=== PATIENT | female | born 1970 | race Caucasian/White ===

== ENCOUNTER → 2017-09-06 | Outpatient (CLI) | payer OTHER ==
--- NOTE | 2017-09-06 13:18 | DIAGNOSTIC IMAGING REPORT ---
LUMBAR SPINE WITHOUT CLINICAL HISTORY: 47 years-old Female presenting with LUMBAR RADICULOPATHY. TECHNIQUE: Multidetector CT of the lumbar spine was performed without the use of intravenous contrast. IV contrast: None. A dose lowering technique was used consistent with the principles of ALARA (as low as reasonably achievable). COMPARISON: None. CT DOSE (mGy.cm): The estimated cumulative dose is 979.93 mGy.cm. 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 Partially visualized pacer leads to the right atrium and right ventricular apex. Normal lumbar lordosis. No significant scoliosis. Vertebral bodies maintain normal height and alignment. Prominent Schmorl's node at the superior endplate of L3. Intervertebral disc heights preserved. A disc bulge may be present at L3-4 with resultant effacement of the ventral thecal sac. No significant osseous spinal canal or neural foraminal narrowing. No acute fracture or subluxation. Paraspinal musculature normal. Atherosclerosis noted. IMPRESSION: No advanced degenerative change. No osseous neural foraminal or spinal canal stenosis. Electronically signed by: Jace Delaney M.D. 09/06/2017 1:17 PM Dictated Date/Time: 09/06/2017 1:14 PM
== END | disposition home or self-care (01) ==
LOC: C.CTS 12:52
PROVIDERS: ATTEND Orthopaedic Surgery Orthopaedic Surgery of the Spine
DX: M54.16 Radiculopathy, lumbar region (principal)